=== PATIENT | female | born 1990 | race Caucasian/White ===

== ENCOUNTER 2018-03-03 11:39 | Emergency (ER) | payer OTHER, SELFPAY ==
[2018-03-03 11:40] VITALS: BP 136/72; PULSE 72; RESP 18; TEMP 36.4; O2SAT 98; BMI 27.4
[2018-03-03 12:28] VITALS: BP 127/81; PULSE 72; RESP 14; O2SAT 98
--- NOTE | 2018-03-03 12:59 | ED.RN ---
PATIENT STATES SHE HAS TO LEAVE TO GET TO WORK. PATIENT LEFT WITHOUT BEING SCANNED AND WITHOUT DISCHARGE INSTRUCTIONS. DR. MESHA ARIAS.
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
== END 2018-03-03 13:02 | disposition home or self-care (01) ==
LOC: ED 16:47
PROVIDERS: Emergency Provider Emergency Medicine; Family Provider Family Medicine; PCP Family Medicine
DX: M54.2 Cervicalgia (principal); M54.9 Dorsalgia, unspecified; R07.89 Other chest pain; Z53.29 Procedure and treatment not carried out because of patient's decision for other reasons; V43.52XA Car driver injured in collision with other type car in traffic accident, initial encounter; Y93.9 Activity, unspecified; Y92.9 Unspecified place or not applicable; Z72.0 Tobacco use
CPT/HCPCS: 99282

== ENCOUNTER 2019-04-07 12:19 | Emergency (ER) | payer OTHER, SELFPAY ==
[2019-04-07 12:21] VITALS: BP 144/91; PULSE 95; RESP 16; TEMP 37.2; O2SAT 99; BMI 32.9
--- NOTE | 2019-04-07 12:51 | EKG12_ITS ---
Test Reason : GENERAL ILLNESS Blood Pressure : / mmHG Vent. Rate : 078 BPM Atrial Rate : 078 BPM P-R Int : 156 ms QRS Dur : 094 ms QT Int : 372 ms P-R-T Axes : 017 011 002 degrees QTc Int : 424 ms Normal sinus rhythm Normal ECG Confirmed by MEG VILLATORO ([id number]), medical editor OSWALDO PORTILLO ([id number]) on 04/14/2019 9:12:38 AM Referred By: Luis Luna Confirmed By:MEG VILLATORO
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
[2019-04-07 14:00] VITALS: PULSE 81; RESP 16; O2SAT 97
== END 2019-04-07 14:01 | disposition home or self-care (01) ==
PROVIDERS: Emergency Provider Emergency Medicine; Family Provider Family Medicine; PCP Student in an Organized Health Care Education/Training Program; Referring Provider Student in an Organized Health Care Education/Training Program
DX: T75.4XXA Electrocution, initial encounter (principal); W86.8XXA Exposure to other electric current, initial encounter; Y93.89 Activity, other specified; Y92.510 Bank as the place of occurrence of the external cause; Y99.0 Civilian activity done for income or pay; Z87.891 Personal history of nicotine dependence
CPT/HCPCS: 93005; 99282